=== PATIENT | female | born 1965 | race Caucasian/White ===

== ENCOUNTER 2017-08-06 00:05 | Emergency (ER) | payer BC ==
[~2017-08-06] VITALS: Ht 165.1 cm; Wt 69.5 kg
[2017-08-06 00:16] VITALS: Ht 165.1 cm; Wt 69.5 kg
[2017-08-06] MEDS ORDERED: HYDROCODONE/APAP (5/325) TAB PO STA (01:03)
[2017-08-06] MEDS ORDERED: IBUPROFEN 200 MG TAB PO STA (01:03)
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
--- NOTE | 2017-08-06 02:13 | RADRPT ---
PROCEDURE: XR Ankle. CLINICAL INDICATION: Left ankle pain. TECHNIQUE: Three views of the left ankle. COMPARISON: None available. FINDINGS: There is a fracture along the inferior tip of the lateral malleolus. The ankle mortise appears inta ct in this nonstressed study. The joint spaces are preserved. There is soft tissue swelling along the lateral ankle. IMPRESSION: 1. Fracture along the inferior tip of the lateral malleolus. RPTAT: HTAR .Anselmo Turner MD, Date Time Electronically viewed and signed by .Anselmo Turner MD, on 08/06/2017 02:13 .R/
[2017-08-06] MEDS ORDERED: NAPR-260 PO (02:18)
[2017-08-06 03:02] VITALS: BP 100/52; PULSE 78; RESP 18; TEMP 98.2
== END 2017-08-06 03:05 | disposition home or self-care (01) ==
LOC: FTE 00:05
DX: S82.62XA Displaced fracture of lateral malleolus of left fibula, initial encounter for closed fracture (principal); X50.9XXA Other and unspecified overexertion or strenuous movements or postures, initial encounter; Y92.9 Unspecified place or not applicable
CPT/HCPCS: 73610